=== PATIENT | female | born 1970 | race Caucasian/White ===

== ENCOUNTER 2016-09-03 23:30 | Emergency (ER) | payer OTHER ==
[~2016-09-03] VITALS: Ht 175.2 cm; Wt 113.4 kg
[~2016-09-03 23:30] MED LIST: AMOXICILLIN500 M3 PO; AUGMENTIN 875 M1 TAB PO; BACTRIM DS 8001 TA1 PO; BACTRIM DS 8001 TAB PO; CALCIUM500 M1 PO; CELEBREX50 MG PO; CIPROFLOXACIN500 MG PO; CLARITIN10 MG PO; DAYPRO600 M1 PO; DIFLUCAN150 MG PO; DITROPAN XL5 MG PO; EC NAPROSYN500 MG PO; FLEXERIL10 MG PO; FLINTSTONES W/I1 CTB PO; FLOMAX0.4 MG PO; FLONASE ALLERG9.9 ML NS; HYCODAN/HYDROMET5 ML PO; HYDROCODONE BIT1 T11 PO; KEFLEX500 MG PO; KEFTAB500 MG PO; MEDROL DOSEPAK4 MG PO; MOTRIN800 MG PO; MULTIVITAMINS1 EACH PO; NAPROSYN500 MG PO; NAPROXEN500 MG PO; NORCO 5-325 TA1 EACH PO; PERCOCET 325 MG1 TA2 PO; PERCOCET 325 MG1 TA5 PO; PREVACID30 M1 PO; PRILOSEC20 M1 PO; PRILOSEC20 MG PO; PYRIDIUM200 MG PO; TESSALON PERLE100 M1 PO; TESSALON PERLE200 MG PO; TRAMADOL HCL50 MG PO; ULTRAM50 MG PO; VALIUM5 MG PO; VICODIN 5/500 505 MG PO; VITAMIN B122000 MCG PO; VITAMIN D31000 IU PO; VOLTAREN50 M1 PO; ZITHROMAX200 MG/51 PO; ZOFRAN ODT4 MG SL; ZOLOFT25 MG PO; ZOLOFT50 MG PO
[2016-09-03 23:35] VITALS: BP 147/87
[2016-09-04] MEDS ORDERED: AMOXICILLIN500 M2 PO (00:15)
== END 2016-09-04 00:17 | disposition home or self-care (01) ==
LOC: ED 23:30
DX: K08.409 Partial loss of teeth, unspecified cause, unspecified class (principal); Z98.890 Other specified postprocedural states; Z98.84 Bariatric surgery status; Z98.51 Tubal ligation status; Z90.49 Acquired absence of other specified parts of digestive tract; Z79.899 Other long term (current) drug therapy; Z88.6 Allergy status to analgesic agent; Z88.8 Allergy status to other drugs, medicaments and biological substances

== ENCOUNTER 2016-11-01 22:39 | Emergency (ER) | payer SELFPAY ==
[~2016-11-01] VITALS: Ht 175.2 cm; Wt 113.4 kg
[~2016-11-01 22:39] MED LIST changes: +AMOXICILLIN500 M2 PO
[2016-11-01 22:58] VITALS: BP 132/72
== END 2016-11-02 00:35 | disposition home or self-care (01) ==
LOC: ED 22:39
DX: S90.122A Contusion of left lesser toe(s) without damage to nail, initial encounter (principal); Z90.49 Acquired absence of other specified parts of digestive tract; Z88.6 Allergy status to analgesic agent; Z79.899 Other long term (current) drug therapy; W22.03XA Walked into furniture, initial encounter; Y93.01 Activity, walking, marching and hiking; Y92.9 Unspecified place or not applicable; Y99.9 Unspecified external cause status

== ENCOUNTER → 2018-03-12 | Outpatient (CLI) | payer SELFPAY | END | disposition home or self-care (01) | LOC: RAD 13:08 | DX: R06.02 Shortness of breath (principal); R05 Cough; M54.9 Dorsalgia, unspecified ==

== ENCOUNTER → 2019-11-02 | Outpatient (CLI) | payer OTHER | END | disposition home or self-care (01) | LOC: RAD 11:21 | DX: M54.2 Cervicalgia (principal) ==

== ENCOUNTER 2020-11-09 15:56 | Emergency (ER) | payer SELFPAY ==
[~2020-11-09] VITALS: Ht 175.2 cm; Wt 122.5 kg
[2020-11-09 16:00] VITALS: BP 147/74
[2020-11-09] MEDS ORDERED: PREDNISONE20 M1 PO (18:57)
[2020-11-09] MEDS ORDERED: METHOCARBAMOL500 M1 PO (18:57)
== END 2020-11-09 19:18 | disposition home or self-care (01) ==
LOC: ED 15:56
DX: M54.41 Lumbago with sciatica, right side (principal); Z98.51 Tubal ligation status; Z90.49 Acquired absence of other specified parts of digestive tract; Z98.890 Other specified postprocedural states; Z79.899 Other long term (current) drug therapy; Z88.6 Allergy status to analgesic agent

== ENCOUNTER → 2021-05-03 | Outpatient (CLI) | payer OTHER ==
[~2021-05-03] MED LIST changes: +METHOCARBAMOL500 M1 PO; +PREDNISONE20 M1 PO
== END | disposition home or self-care (01) ==
LOC: ORTHO 00:29
PROVIDERS: ATTEND Orthopaedic Surgery
DX: M17.11 Unilateral primary osteoarthritis, right knee (principal)

== ENCOUNTER → 2022-11-29 | Outpatient (CLI) | payer MEDICAID | END | disposition home or self-care (01) | LOC: RAD 10:57 | PROVIDERS: ATTEND Nurse Practitioner Family | DX: M25.521 Pain in right elbow (principal) ==

== ENCOUNTER 2024-01-02 14:51 | Emergency (ER) | payer BC ==
[~2024-01-02] VITALS: Ht 175.2 cm; Wt 172.4 kg
[2024-01-02 15:09] VITALS: BP 106/53
[2024-01-02] MEDS ORDERED: methylPREDNISolone sod succ 125 MG VIAL IM ONE (15:15)
[2024-01-02] MEDS ORDERED: PREDNISONE20 M1 PO (15:16)
== END 2024-01-02 15:24 | disposition home or self-care (01) ==
LOC: ED 14:51
DX: L25.9 Unspecified contact dermatitis, unspecified cause (principal); M19.90 Unspecified osteoarthritis, unspecified site; F32.A Depression, unspecified; Z87.442 Personal history of urinary calculi; Z88.6 Allergy status to analgesic agent; Z88.8 Allergy status to other drugs, medicaments and biological substances; Z90.49 Acquired absence of other specified parts of digestive tract; Z98.890 Other specified postprocedural states; Z98.51 Tubal ligation status

== ENCOUNTER → 2024-07-01 | Outpatient (CLI) | payer OTHER ==
[2024-07-01 13:26] LABS: BASO # 0.1 10*3/uL (0.0-0.1); BASO % 1.2 % (0.0-1.0); EOS # 0.2 10*3/uL (0.0-0.4); EOS % 3.1 % (1.0-4.0); HEMATOCRIT 40.4 % (37.0-47.0); MEAN CORPUSCULAR HGB 29.7 pg (27.0-31.0); MEAN CORPUSCULAR HGB CONC 32.7 g/dl (33.0-37.0); MEAN PLATELET VOLUME 12.9 fl (9.6-12.3); MONO # 0.6 10*3/uL (0.1-1.0); MONO % 9.3 % (3.0-9.0); NEUT # 4.1 10*3/uL (2.3-7.9); NEUT % 62.9 % (47.0-73.0); PLATELET COUNT AUTOMATED 249 10*3/uL (130-400); RED BLOOD COUNT 4.44 10*6/uL (4.10-5.10); WHITE BLOOD COUNT 6.5 10*3/uL (4.8-10.8)
[2024-07-01 14:02] LABS: ALKALINE PHOSPHATASE 86 U/L (46-116); BUN 10 mg/dl (9-23); CHLORIDE 106 mmol/L (98-107); POTASSIUM 4.1 mmol/L (3.4-5.1); SGPT/ALT 16 U/L (5-49); TOTAL PROTEIN 6.7 gm/dL (6.0-8.0)
[2024-07-02 06:07] LABS: HBsAG SCREEN Negative (Negative); HCV Ab Non Reactive (Non Reactive); HEP B CORE Ab, IgM Negative (Negative)
== END | disposition home or self-care (01) ==
LOC: LAB 12:21
PROVIDERS: ATTEND Internal Medicine Rheumatology
DX: M05.9 Rheumatoid arthritis with rheumatoid factor, unspecified (principal); D89.89 Other specified disorders involving the immune mechanism, not elsewhere classified

== ENCOUNTER 2024-08-20 20:13 | Emergency (ER) | payer OTHER ==
[~2024-08-20] VITALS: Ht 175.2 cm; Wt 131.1 kg
[2024-08-20 20:20] VITALS: BP 148/72
[2024-08-20] MEDS ORDERED: Acetaminophen/Oxycodone 5 MG/325 MG TABLET PO ONE (20:55)
[2024-08-20] MEDS ORDERED: cefTRIAXone Sodium 1 GM VIAL IM ONE (20:55)
[2024-08-20 21:11] LABS: BASO # 0.1 10*3/uL (0.0-0.1); BASO % 0.7 % (0.0-1.0); EOS # 0.2 10*3/uL (0.0-0.4); EOS % 1.7 % (1.0-4.0); MEAN CELL VOLUME 93.6 fl (81.0-99.0); MEAN CORPUSCULAR HGB 30.5 pg (27.0-31.0); MEAN CORPUSCULAR HGB CONC 32.6 g/dl (33.0-37.0); MEAN PLATELET VOLUME 12.8 fl (9.6-12.3); MONO % 10.6 % (3.0-9.0); NEUT # 6.5 10*3/uL (2.3-7.9); PLATELET COUNT AUTOMATED 233 10*3/uL (130-400); RED BLOOD COUNT 4.06 10*6/uL (4.10-5.10); RED CELL DISTRI WIDTH 14.8 % (0-14.5); WHITE BLOOD COUNT 9.7 10*3/uL (4.8-10.8)
[2024-08-20] MEDS ORDERED: Water, Sterile 10 ML VIAL ONE (21:15)
[2024-08-20 21:29] LABS: BUN 19 mg/dl (9-23); CHLORIDE 107 mmol/L (98-107); POTASSIUM 3.8 mmol/L (3.4-5.1)
[2024-08-20] MEDS ORDERED: AMOX-CLAV 875-1 EACH PO (21:45)
[2024-08-20] MEDS ORDERED: FLUONAZOLE150 M1 PO (21:45)
== END 2024-08-20 21:55 | disposition home or self-care (01) ==
LOC: ED 20:13
PROVIDERS: Nurse Practitioner Family
DX: L03.116 Cellulitis of left lower limb (principal); F32.A Depression, unspecified; Z88.6 Allergy status to analgesic agent; Z88.8 Allergy status to other drugs, medicaments and biological substances; Z79.899 Other long term (current) drug therapy; Z98.890 Other specified postprocedural states; Z98.84 Bariatric surgery status; Z90.49 Acquired absence of other specified parts of digestive tract